=== PATIENT | female | born 1960 | race African-American/Black ===

== ENCOUNTER 2021-06-20 15:31 | Emergency (ER) | payer MEDICARE, OTHER ==
[~2021-06-20] VITALS: Ht 170.2 cm; Wt 76.7 kg
[~2021-06-20 15:31] MED LIST: ALBU8HFA4 IH; BECL8.7A6 IH; CHOL100018 PO; FERR-48 PO; IRON-15 PO; LEVO175T9 PO; PARO-38 PO; VITA400C25 PO
[2021-06-20 15:46] VITALS: BP 140/85
== END 2021-06-20 17:19 | disposition home or self-care (01) ==
LOC: EMS 15:31
DX: F10.129 Alcohol abuse with intoxication, unspecified (principal); J44.9 Chronic obstructive pulmonary disease, unspecified; E03.9 Hypothyroidism, unspecified; F32.9 Major depressive disorder, single episode, unspecified
CPT/HCPCS: 82962; 99283